=== PATIENT | male | born 1965 | race African-American/Black ===

== ENCOUNTER 2017-11-27 08:51 | Emergency (ER) | payer MEDICAID, OTHER ==
[~2017-11-27] VITALS: Ht 172.7 cm; Wt 73.0 kg
[2017-11-27 13:30] VITALS: BP 130/68
== END 2017-11-27 14:08 | disposition home or self-care (01) ==
LOC: ER 10:23
DX: S22.41XA Multiple fractures of ribs, right side, initial encounter for closed fracture (principal); S09.90XA Unspecified injury of head, initial encounter; M54.6 Pain in thoracic spine; R07.81 Pleurodynia; W13.2XXA Fall from, out of or through roof, initial encounter; Y93.89 Activity, other specified; Y92.89 Other specified places as the place of occurrence of the external cause; Y99.8 Other external cause status
CPT/HCPCS: 70450; 71045; 71100; 72070; 99284